=== PATIENT | male | born 1960 | race Caucasian/White ===

== ENCOUNTER 2016-08-17 19:04 | Emergency (ER) | payer MEDICAID, MEDICARE ==
[~2016-08-17] VITALS: Ht 177.8 cm; Wt 122.5 kg
[~2016-08-17 19:04] MED LIST: AGM875T PO; CARB1TAB6 PO; HYDR-3583 PO; SERT100T8 PO; ZLP5T PO
[2016-08-17] MEDS ORDERED: RX-NITROGLYCERIN 0.4 MG TAB BTL 25'S SL ONE (19:13)
[2016-08-17] MEDS ORDERED: ASPIRIN 325 MG (5 GR) TABLET ONE (19:13)
[2016-08-17] MEDS ORDERED: ASPIRIN 81 MG CHEW (CHILDREN'S ASA) ONE (19:14)
[2016-08-17] MEDS ORDERED: RX-NITROGLYCERIN 0.4 MG TAB BTL 25'S SL PRN (19:15)
[2016-08-17] MEDS ORDERED: RT-ALBUTEROL/IPRATROPIUM 3 ML (DUONEB) VIAL INH ONE (19:15)
[2016-08-17] MEDS ORDERED: ACETAMINOPHEN 500 MG TAB (TYLENOL) PO ONE (19:15)
[2016-08-17 19:24] LABS: BASOPHILS % (AUTO) 0 % (0-10); EOSINOPHILS # (AUTO) 0.1 10^3/uL (0.0-0.3); EOSINOPHILS % (AUTO) 1 % (0-10); LYMPHOCYTES # (AUTO) 1.7 X 10^3 (1.0-4.0); LYMPHOCYTES % (AUTO) 11 % (12-44); MEAN CORPUSCULAR HEMOGLOBIN 29 PG (25-34); MEAN CORPUSCULAR HGB CONC 35 G/DL (32-36); MEAN CORPUSCULAR VOLUME 85 FL (80-99); MEAN PLATELET VOLUME 11.4 FL (7.4-10.4); MONOCYTES # (AUTO) 0.9 X 10^3 (0.0-1.0); MONOCYTES % (AUTO) 6 % (0-12); NEUTROPHILS # (AUTO) 11.9 X 10^3 (1.8-7.8); NEUTROPHILS % (AUTO) 82 % (42-75); PLATELET COUNT 193 10^3/uL (130-400); RED BLOOD COUNT 4.67 10^6/uL (4.35-5.85); RED CELL DISTRIBUTION WIDTH 12.6 % (10.0-14.5); WHITE BLOOD COUNT 14.6 10^3/uL (4.3-11.0)
[2016-08-17 19:37] LABS: INR 1.1 (0.8-1.4); PROTHROMBIN TIME PATIENT 13.4 SEC (12.2-14.7)
[2016-08-17 19:44] LABS: BAND NEUTROPHILS 1 %; BASOPHILS % (MANUAL) 0 %; EOSINOPHILS % (MANUAL) 1 %; LYMPHOCYTES % (MANUAL) 12 %; NEUTROPHILS % (MANUAL) 83 %
[2016-08-17 19:46] LABS: ALANINE AMINOTRANSFERASE 16 U/L (0-55); ALBUMIN 4.2 GM/DL (3.2-4.5); ANION GAP 9 MMOL/L (5-14); ASPARTATE AMINO TRANSFERASE 19 U/L (5-34); BILIRUBIN,TOTAL 0.9 MG/DL (0.1-1.0); BLOOD UREA NITROGEN 8 MG/DL (7-18); CALCIUM 9.1 MG/DL (8.5-10.1); CARBON DIOXIDE 21 MMOL/L (21-32); CHLORIDE 105 MMOL/L (98-107); GLUCOSE 98 MG/DL (70-105); HEMOLYSIS 36 (-100-29); ICTERUS 0.8 (-100-1.9); LIPEMIA 2 (-100-49); POTASSIUM 3.8 MMOL/L (3.6-5.0); SODIUM 135 MMOL/L (135-145); TOTAL PROTEIN 7.2 GM/DL (6.4-8.2)
[2016-08-17 19:52] LABS: MYOGLOBIN SERUM 60.7 NG/ML (10.0-92.0)
--- NOTE | 2016-08-17 19:58 | ED General ---
General Stated Complaint: CHEST PAINS,SOB,FEVER Source of Information: Patient, EMS, Family Exam Limitations: No Limitations History of Present Illness Time Seen by Provider: 19:07 Initial Comments This 56-year-old gentleman presents to the emergency room via EMS with complaints of shortness of breath and heaviness in his chest. Symptoms have been present since last night. He complains of cough and congestion as well. He has had temperature up to 102.7. Patient has a history of Economy's chorea. EMS reported oxygen saturation was 98 percent on 6 L nasal cannula on their arrival. On arrival to the ER he has saturation of 96 percent on room air. EMS administered aspirin. He has had most of a 1 L normal saline bolus by EMS. Allergies and Home Medications Allergies Coded Allergies: No Known Drug Allergies (Unverified , 10/12/11) Home Medications Azithromycin 250 Mg Tablet, 250 MG PO DAILY, #4 Prescribed by: CAROL ANN FOURNIER on 08/17/162107 Carbidopa/Levodopa 1 Each Tablet, 2 EACH PO DAILY, (Reported) Cefdinir 300 Mg Capsule, 300 MG PO BID, #14 Prescribed by: CAROL ANN FOURNIER on 08/17/162107 Sertraline Hcl 100 Mg Tablet, 100 MG PO DAILY, (Reported) Zolpidem Tartrate 5 Mg Tablet, 1 EACH PO HS, (Reported) Constitutional: see HPI EENTM: nose congestion, see HPI Respiratory: see HPI Cardiovascular: see HPI Gastrointestinal: no symptoms reported Genitourinary: no symptoms reported Musculoskeletal: no symptoms reported Skin: no symptoms reported Psychiatric/Neurological: See HPI Hematologic/Lymphatic: No Symptoms Reported Past Pjibehr-Zgnswm-Juvamx Hx Patient Social History Recent Foreign Travel: No Contact w/Someone Who Travel: No Seasonal Allergies Seasonal Allergies: No Surgeries HX Surgeries: Yes (HERNIA) Respiratory Hx Respiratory Disorders: No Cardiovascular Hx Cardiac Disorders: No Neurological Hx Neurological Disorders: Yes (PATRICK'S CHOREA) Reproductive System Hx Reproductive Disorders: No Genitourinary Hx Genitourinary Disorders: No Gastrointestinal Hx Gastrointestinal Disorders: No Musculoskeletal Hx Musculoskeletal Disorders: No Endocrine Hx Endocrine Disorders: No HEENT HX ENT Disorders: No Cancer Hx Cancer: No Psychosocial Hx Psychiatric Problems: No Integumentary HX Skin/Integumentary Disorder: No Blood Transfusions Hx Blood Disorders: No Physical Exam-Suspected Sepsis Physical Exam Vital Signs Vital Sign - Last 12Hours 08/17/16 19:04 Temp 102.9 Pulse 60 Resp 20 B/P (MAP) 126/80 Pulse Ox 95 O2 Delivery Non Rebreather O2 Flow Rate 15.00 Capillary Refill : General Appearance: WD/WN, Mild Distress HEENT: PERRL/EOMI, Normal ENT Inspection, Pharynx Normal, Other (nasal congestion) Neck: Normal Inspection Respiratory: Chest Non Tender, Lungs Clear, Normal Breath Sounds, No Accessory Muscle Use, No Respiratory Distress, Other (decreased air movement) Cardiovascular: Regular Rate, Rhythm, No Edema, No Murmur Gastrointestinal: Normal Bowel Sounds, Non Tender, Soft Extremity: Normal Inspection, Non Tender, No Calf Tenderness Neurologic/Psychiatric: Alert, Oriented x3, No Motor/Sensory Deficits, Normal Mood/Affect, registrar museum II-XII Norm as Tested, Other (dystonic movements consistent with Economy's chorea) Skin: normal color, warm/dry Focused Exam Lactic Acid Level Progress/Results/Core Measures Suspected Sepsis SIRS Temperature:102.9 Pulse: Respiratory Rate: Laboratory Tests 08/17/16 19:11: White Blood Count 14.6H Blood Pressure / Mean: Laboratory Tests 08/17/16 19:11: Creatinine 0.91, INR Comment 1.1, Platelet Count 193, Total Bilirubin 0.9 Results/Orders Lab Results Laboratory Tests Test 08/17/16 19:11 Range/Units White Blood Count 14.6 H 4.3-11.0 10^3/uL Red Blood Count 4.67 4.35-5.85 10^6/uL Hemoglobin 13.7 13.3-17.7 G/DL Hematocrit 40 40-54 % Mean Corpuscular Volume 85 80-99 FL Mean Corpuscular Hemoglobin 29 25-34 PG Mean Corpuscular Hemoglobin Concent 35 32-36 G/DL Red Cell Distribution Width 12.6 10.0-14.5 % Platelet Count 193 130-400 10^3/uL Mean Platelet Volume 11.4 H 7.4-10.4 FL Neutrophils (%) (Auto) 82 H 42-75 % Lymphocytes (%) (Auto) 11 L 12-44 % Monocytes (%) (Auto) 6 0-12 % Eosinophils (%) (Auto) 1 0-10 % Basophils (%) (Auto) 0 0-10 % Neutrophils # (Auto) 11.9 H 1.8-7.8 X 10^3 Lymphocytes # (Auto) 1.7 1.0-4.0 X 10^3 Monocytes # (Auto) 0.9 0.0-1.0 X 10^3 Eosinophils # (Auto) 0.1 0.0-0.3 10^3/uL Basophils # (Auto) 0.0 0.0-0.1 10^3/uL Neutrophils % (Manual) 83 % Lymphocytes % (Manual) 12 % Monocytes % (Manual) 3 % Eosinophils % (Manual) 1 % Basophils % (Manual) 0 % Band Neutrophils 1 % Blood Morphology Comment NORMAL Prothrombin Time 13.4 12.2-14.7 SEC INR Comment 1.1 0.8-1.4 Activated Partial Thromboplast Time 31 24-35 SEC Sodium Level 135 135-145 MMOL/L Potassium Level 3.8 3.6-5.0 MMOL/L Chloride Level 105 98-107 MMOL/L Carbon Dioxide Level 21 21-32 MMOL/L Anion Gap 9 5-14 MMOL/L Blood Urea Nitrogen 8 7-18 MG/DL Creatinine 0.91 0.60-1.30 MG/DL Estimat Glomerular Filtration Rate > 60 BUN/Creatinine Ratio 9 0-20 Glucose Level 98 70-105 MG/DL Lactic Acid Level 1.22 0.50-2.00 MMOL/L Calcium Level 9.1 8.5-10.1 MG/DL Magnesium Level 2.0 1.8-2.4 MG/DL Total Bilirubin 0.9 0.1-1.0 MG/DL Aspartate Amino Transf (AST/SGOT) 19 5-34 U/L Alanine Aminotransferase (ALT/SGPT) 16 0-55 U/L Alkaline Phosphatase 58 40-136 U/L Myoglobin 60.7 10.0-92.0 NG/ML Troponin I < 0.30 <0.30 NG/ML C-Reactive Protein High Sensitivity 1.04 H 0.00-0.50 MG/DL Total Protein 7.2 6.4-8.2 GM/DL Albumin 4.2 3.2-4.5 GM/DL My Orders Orders - CAROL ANN SEVILLA MD Albuterol/Ipra Inhalation Soln (Duoneb I (08/17/16 19:15) Svn Sm Volume Nebulizer Rt-Rfs (08/17/16 19:14) Cbc With Automated Diff (08/17/16 19:14) Magnesium (08/17/16 19:14) Ekg Tracing (08/17/16 19:14) Cardiac Profile 1 (08/17/16 19:14) Comprehensive Metabolic Panel (08/17/16 19:14) Myoglobin Serum (08/17/16 19:14) Protime With Inr (08/17/16 19:14) Partial Thromboplastin Time (08/17/16 19:14) O2 (08/17/16 19:14) Monitor-Rhythm Ecg Trace Only (08/17/16 19:14) Rx-Nitroglycerin Sl Tabs (Rx-Nitrostat S (08/17/16 19:15) Saline Lock/Iv-Start (08/17/16 19:14) Lactic Acid Analyzer (08/17/16 19:14) Blood Culture (08/17/16 19:14) Sputum Culture (08/17/16 19:14) Vital Signs Adult Sepsis Patie Q1HR (08/17/16 19:14) Remove Rings In Anticipation O (08/17/16 19:14) Acetaminophen Tablet (Tylenol Tablet) (08/17/16 19:15) Aspirin Tablet (Aspirin Tablet) (08/17/16 19:13) Rx-Nitroglycerin Sl Tabs (Rx-Nitrostat S (08/17/16 19:13) Aspirin Chewable Tablet (Baby Aspirin Ch (08/17/16 19:14) Manual Differential (08/17/16 19:11) Chest 1 View, Ap/Pa Only (08/17/16 19:43) Hs C Reactive Protein (08/17/16 19:58) Ceftriaxone Injection (Rocephin Injectio (08/17/16 21:00) Rx-Albuterol Inhaler (Rx-Ventolin Hfa) (08/17/16 21:01) Azithromycin Tablet (Zithromax Tablet) (08/17/16 21:15) Rx-Albuterol Inhaler (Rx-Proair) (08/17/16 21:10) Medications Given in ED Current Medications Medications Dose Ordered Sig/Jonathan Route Start Time Stop Time Status Last Admin Dose Admin Acetaminophen 1,000 mg ONCE ONCE PO 08/17/16 19:15 08/17/16 19:17 DC 08/17/16 19:26 1,000 MG Albuterol/ Ipratropium 3 ml ONCE ONCE INH 08/17/16 19:15 08/17/16 19:17 DC 08/17/16 19:20 3 ML Aspirin 325 mg STK-MED ONCE .ROUTE 08/17/16 19:13 08/17/16 19:18 DC 08/17/16 19:22 325 MG Azithromycin 500 mg ONCE ONCE PO 08/17/16 21:15 08/17/16 21:16 DC 08/17/16 21:23 500 MG Ceftriaxone Sodium 1000 mg/ Sodium Chloride 50 ml @ 100 mls/hr ONCE ONCE IV 08/17/16 21:00 08/17/16 21:29 DC 08/17/16 20:55 100 MLS/HR Nitroglycerin 0.4 mg STK-MED ONCE SL 08/17/16 19:13 08/17/16 19:19 DC 08/17/16 19:17 0.4 MG Vital Signs/I&O Vital Sign - Last 12Hours 08/17/16 08/17/16 08/17/16 08/17/16 19:04 19:20 19:26 21:36 Temp 102.9 102.9 103.0 Pulse 60 32 Resp 20 20 B/P (MAP) 126/80 Pulse Ox 95 100 93 O2 Delivery Non Rebreather Room Air Room Air O2 Flow Rate 15.00 15.00 Capillary Refill : Progress Note : Progress Note Patient was given aspirin by EMS and nitroglycerin in the ER. Nitroglycerin did not seem to relieve his pain. However, DuoNeb treatment alleviated his pain completely. Patient was found to have bilateral perihilar pneumonia. Rocephin was initiated in the ER. Patient continued to be febrile. Due to fever and leukocytosis, patient meets sepsis criteria. I advised patient to be admitted but he refused. I spoke with the patient's niece with whom he presently lives. She is concerned about his ability to function at home. Patient is presently living with her because of his inability to care for self. I discussed my reasons for desiring admission with patient, niece, and patient 's brother. Patient still refused. He ultimately left AGAINST MEDICAL ADVICE. ECG Initial ECG Impression Date: Aug 17, 2016 Initial ECG Impression Time: 19:16 Initial ECG Rate: 80 Initial ECG Rhythm: Normal Sinus Initial ECG Intervals: Normal Initial ECG Impression: Normal Comment normal sinus rhythm with no ST elevation or depression. No abnormal intervals or axis deviation. Diagnostic Imaging Diagonstic Imaging: Xray Plain Films/CT/US/NM/MRI: chest Comments Chest x-ray viewed by me and report reviewed. See report below: NAME: ROBER HOSKINS [facility] REC#: [id number] PT STATUS: REG ER : 1960 PHYSICIAN: CAROL ANN SEVILLA MD ADMIT DATE: 08/17/16/ER Draft Date of Exam:08/17/16 CHEST 1 VIEW, AP/PA ONLY INDICATION: Fever, chest pain. TECHNIQUE: Single view chest 7:53 PM. CORRELATION STUDY: None FINDINGS: Suggestion of bilateral perihilar infiltrates and/or atelectasis. More peripherally, lung bhatia are clear. Heart size and vasculature are borderline. IMPRESSION: 1. Bilateral perihilar infiltrates and/or atelectasis suggested. Heart size and vasculature borderline. Dictated on workstation # [id number] Dict: 08/17/161957 Trans: 08/17/162004 [place] [id number] Interpreted by: TATA URRUTIA DO Departure Impression Impression: Primary Impression: Sepsis Qualified Codes: A41.9 - Sepsis, unspecified organism Additional Impressions: Pneumonia Qualified Codes: J18.9 - Pneumonia, unspecified organism Bronchospasm Pleuritic chest pain Disposition: 07 AGAINST MEDICAL ADVICE Condition: Against Medical Advice Departure-Patient Inst. Referrals: NO,LOCAL PHYSICIAN (PCP/Family) Primary Care Physician Patient Instructions: Community-Acquired Pneumonia in Adults, Sepsis in Adults Add. Discharge Instructions: You have been advised to stay at the hospital for admission for treatment of pneumonia, sepsis, and evaluation of chest pain. Complete your antibiotics as prescribed. Follow-up with a primary care provider as soon as possible. Use your inhaler up to 4 puffs and a 4 hour period of time. Use a spacer to improve effectiveness. Return to emergency room if symptoms worsen. You may use Tylenol (acetaminophen) and/or ibuprofen for fever. Avoid inhaled irritants such as cigarette smoke. Scripts Azithromycin (Azithromycin) 250 Mg Tablet 250 MG PO DAILY, #4 TAB Prov: CAROL ANN SEVILLA MD 08/17/16 Cefdinir (Cefdinir) 300 Mg Capsule 300 MG PO BID, #14 CAP Prov: CAROL ANN SEVILLA MD 08/17/16 CAROL ANN SEVILLA MD Aug 17, 2016 19:58
[2016-08-17 20:03] LABS: BUN/CREATININE RATIO 9 (0-20); CREATININE SERUM 0.91 MG/DL (0.60-1.30); GFR ESTIMATED > 60
--- NOTE | 2016-08-17 20:06 | Diagnostic Imaging Report ---
INDICATION: Fever, chest pain. TECHNIQUE: Single view chest 7:53 PM. CORRELATION STUDY: None FINDINGS: Suggestion of bilateral perihilar infiltrates and/or atelectasis. More peripherally, lung bhatia are clear. Heart size and vasculature are borderline. IMPRESSION: 1. Bilateral perihilar infiltrates and/or atelectasis suggested. Heart size and vasculature borderline. Dictated by: Dictated on workstation # [id number]
[2016-08-17] MEDS ORDERED: cefTRIAXone INJECTION 1,000 MG in NS (IVPB) 50 ML IV ONE (21:00)
[2016-08-17] MEDS ORDERED: RX-ALBUTEROL INHALER (VENTOLIN HFA) 18 GM IH STA (21:01)
[2016-08-17] MEDS ORDERED: AZIT250T5 PO (21:08)
[2016-08-17] MEDS ORDERED: CEFD300C3 PO (21:08)
[2016-08-17] MEDS ORDERED: RX-ALBUTEROL INHALER (PROAIR) 8 GM IH ONE (21:10)
[2016-08-17] MEDS ORDERED: AZITHROMYCIN 250 MG TAB (ZITHROMAX) PO ONE (21:15)
[2016-08-17 21:36] VITALS: BP 100/63
== END 2016-08-17 21:36 | disposition left against medical advice (07) ==
LOC: EDUNIT# 19:04 → ER 19:07
DX: A41.9 Sepsis, unspecified organism (principal); J18.9 Pneumonia, unspecified organism; J98.01 Acute bronchospasm; R07.89 Other chest pain; Z86.69 Personal history of other diseases of the nervous system and sense organs
CPT/HCPCS: 36415; 71010; 80053; 83605; 83735; 83874; 84484; 85007; 85027; 85610; 85730; 86141; 87040; 93005; 93041; 94640; 94664